=== PATIENT | female | born 1995 | race African-American/Black ===

== ENCOUNTER 2020-04-19 08:20 | Inpatient (IN) | payer OTHER ==
[2020-04-19] MEDS ORDERED: Bupivacaine 0.25% HCL 30 ML VIAL ONE (08:33)
[2020-04-19 08:46] VITALS: BMI 36.9
[2020-04-19] MEDS ORDERED: hydrALAZINE 20 MG/ML VIAL SLOW IVP PRN ×4 (09:06→23:49)
--- NOTE | 2020-04-19 09:26 | PDOC.LDHP ---
Labor and Delivery H&P Chief complaint: contractions, loss of fluid HPI: Patient of Dr Zhao CC: Possible ROM at 2300 24 yo G1 at 38 weeks scheduled for IOL Friday with COVID pretest scheduled this am but here for LOF and some CTX. States Good FM, no VB, no fevers at home. Review of systems: negative Dating criteria: last menstrual period Grav: 1 Current complications: gestational diabetes (on Gylburide 2,.5 mg po QAM) Current medications: pre- vitamins, other (Glyburide) Allergies/Adverse Reactions: Allergies Allergy/AdvReac Type Severity Reaction Status Date / Time No Known Allergies Allergy Unverified 04/19/20 08:39 Social history: other (tested pos for THC this ) - Physical Exam Vital signs reviewed and normal: yes (135/81 80 16) General: NAD Lungs: CTAB Abdomen: gravid Extremeties: no edema FHT: category 1 [place] contractions every: irregular - Vaginal Exam cm dilated: 4 (by me) Effacement: 50% Station: -1 - Assessment L&D Assessment: term patient in labor (Early Preg; GBS negative. SSE performed by me and evidence of gross pooling in cervix clear fluid. Visualed by me and RN and clemente Zambrano ([email or web address]).) - Plan Plan: admit to L&D, labor augmentation if indicated, informed consent obtained, anesthesia consult for pain management, other (Dr zhao aware. Check Accucheck as needed)
[2020-04-19] MEDS ORDERED: Lidocaine 1% (PF) 30 ML VIAL SC PRN ×2 (09:38→09:39)
[2020-04-19] MEDS ORDERED: Promethazine HCl 25 MG/ML VIAL IM PRN ×4 (09:38→23:49)
[2020-04-19] MEDS ORDERED: Ondansetron PF 4 MG/2 ML Vial IVP PRN ×4 (09:38→23:49)
[2020-04-19] MEDS ORDERED: NS / Oxytocin 40 units/1000ml 1,000 ML IV PRN ×2 (09:38→09:39)
[2020-04-19] MEDS ORDERED: Butorphanol Tartrate 1 MG/ML VIAL SLOW IVP PRN (09:39)
[2020-04-19] MEDS ORDERED: HYDROcodone/Acetaminophen 5/325 mg Tablet PO PRN ×2 (09:39)
[2020-04-19] MEDS ORDERED: Ibuprofen 800 MG TAB PO PRN (09:39)
[2020-04-19] MEDS ORDERED: NS w/ Oxytocin 10 units 500 ML IV SCH (09:45)
[2020-04-19] MEDS: Lactated Ringer's 1,000 ML IV SCH ×2 (09:50→12:23)
[2020-04-19 10:04] LABS: Amnisure Test No Membranes Rupture (No Rupture)
[2020-04-19 10:05] LABS: Amnisure Internal Control QC ACCEPTABLE (ACCEPTABLE)
[2020-04-19 10:20] LABS: Hemoglobin 13.2 g/dL (12.0-16.0); Mean Corpuscular HGB CONC 32.7 g/dL (32.0-36.0); Mean Corpuscular Hemoglobin 27.6 pg (27.0-31.0); Mean Corpuscular Volume 84.4 fL (78.0-98.0); Mean Platelet Volume 8.7 fL (7.4-10.4); Platelet Count 274 thou/uL (130-400); RBC Distribution Width 14.6 % (11.5-14.5); Red Blood Cell (RBC) Count 4.79 mill/uL (4.20-5.40); White Blood Cell (WBC) Count 8.2 thou/uL (4.8-10.8)
[2020-04-19 11:00] LABS: Syphilis Antibody Nonreactive (Nonreactive); Syphilis Antibody Index 0.04 S/CO (<1.00 Non-Reactive)
[2020-04-19 11:11] LABS: HBSAg Index 0.18 S/CO (0-0.99); HIV (1/2) Antibody/Antigen Non-Reactive (NonReactive); HIV 1/2 INDEX 0.36 S/CO (<1.00); Hep B Surf Ag Non-Reactive S/CO (NonReactive)
[2020-04-19] MEDS ORDERED: Fentanyl 4 mcg/Bup 0.1% Cadd 100 ML ONE (11:33)
[2020-04-19] MEDS ORDERED: Acetaminophen 325 MG TAB PO PRN (12:50)
[2020-04-19] MEDS ORDERED: Naloxone HCl 0.4 mg/ml Vial IVP PRN ×2 (12:50)
[2020-04-19] MEDS ORDERED: diphenhydrAMINE 50 MG/ML VIAL IVP PRN (12:50)
[2020-04-19] MEDS ORDERED: Lactated Ringer's 500 ML IV PRN (12:50)
[2020-04-19] MEDS ORDERED: EPHEDRINE 25 MG/5 ML SYRINGE SLOW IVP PRN (12:50)
[2020-04-19] MEDS ORDERED: Fentanyl 4 mcg/Bupivacaine 0.1% Cassette 100 ML EPIDURAL SCH (13:00)
[2020-04-19] MEDS ORDERED: Communication Order-Pharmacy FS SCH (13:00)
[2020-04-19] MEDS ORDERED: Lidocaine 1% (PF) 30 ML VIAL ONE (17:39)
[2020-04-19] MEDS ORDERED: NS / Oxytocin 40 units/1000ml 1,000 ML ONE (17:39)
[2020-04-19] MEDS ORDERED: CEFAZOLIN 2 GM in Premix Bag 1 BAG IVPB SCH (19:15)
--- NOTE | 2020-04-19 19:52 | DN ---
DATE OF PROCEDURE: 04/19/2020 TIME OF SERVICE: 1899. PREOPERATIVE DIAGNOSIS: Thirty-seven weeks gestation, class A2 diabetes, spontaneous rupture of membranes. POSTOPERATIVE DIAGNOSIS: Thirty-seven weeks gestation, class A2 diabetes, spontaneous rupture of membranes. PROCEDURE PERFORMED: Spontaneous vaginal delivery with fourth-degree laceration. ANESTHESIA: Epidural. MEDICATIONS: 2 g Ancef post delivery secondary to fourth degree. DRAINS: Ibrahim to gravity. OPERATIVE FINDINGS: 1. Vigorous female , 100 mL QBL after delivery, Apgars and weight pending, to nursery. 2. Fourth degree midline laceration without episiotomy repaired in the usual manner. 3. Correct counts at the end of the procedure. DISPOSITION: Recovery room in good condition. DESCRIPTION OF PROCEDURE: After obtaining appropriate informed consent, the patient has progressed to complete-complete, she pushed for approximately 1 hour. Baby got down to the level of the perineum and delivered occiput anterior with the shoulders rather transverse. With delivery of the shoulders, 4th degree laceration was appreciated. The was delivered onto the abdomen. Suction cord clamped and cut, and handed off to nurse in attendance. Usual cord blood sample was obtained. The placenta was delivered spontaneously quickly. Fourth-degree laceration was noted to be approximately 2 cm long and was quite smooth along the edges. A 2-0 chromic was used to reapproximate the mucosa of the rectum starting at the apex down the level of the anus and onto the perineum and then tagged for future use. The anal sphincter was then plicated together using horizontal mattresses of 2-0 chromic interrupted x4, incorporating capsule and the body of the muscle. Good reapproximation was noted at the apex. At the vaginal aspect, the laceration was identified, and ligated with a 2-0 chromic suture and running locking at the level of the introitus. We then reapproximated the perineal body together. The stitch from the anal mucosa that was on the perineum was then continued up to the level of the introitus. Further inspection of the vagina revealed no other lacerations. The patient was entered into routine postoperative care. She received 2 g Ancef for antibiotic prophylaxis and we placed on Maureen-Colace b.i.d. Job ID: [id number]
[2020-04-19] MEDS ORDERED: Docusate Calcium (SURFAK) 240 MG CAP PO SCH (23:45)
[2020-04-19] MEDS ORDERED: Lanolin Ointment 7 GM TUBE TOP PRN (23:49)
[2020-04-19] MEDS ORDERED: Preparation H Ointment 28 GM TUBE PR PRN (23:49)
[2020-04-19] MEDS ORDERED: Benzocaine-Menthol 82.5 ML CAN TOP PRN (23:49)
[2020-04-19] MEDS ORDERED: Milk Of Magnesia 30 ML UDCUP PO PRN (23:49)
[2020-04-19] MEDS ORDERED: Zolpidem Tartrate 5 MG TAB PO PRN (23:49)
[2020-04-19] MEDS ORDERED: diphenhydrAMINE 25 MG CAP PO PRN (23:49)
[2020-04-19] MEDS ORDERED: NS / Oxytocin 40 units/1000ml 1,000 ML IV SCH (23:49)
[2020-04-20] MEDS: Ibuprofen 800 MG TAB PO SCH ×4 (00:03→23:56)
[2020-04-20] MEDS: HYDROcodone/Acetaminophen 5/325 mg Tablet PO PRN ×4 (00:03→16:28)
[2020-04-20 07:02] LABS: Glucose 82 mg/dL (70-105)
[2020-04-20] MEDS: Ferrous Sulfate 325 MG TAB PO SCH ×2 (07:27→16:59)
[2020-04-20] MEDS: Docusate Calcium (SURFAK) 240 MG CAP PO SCH ×2 (08:34→22:42)
[2020-04-20] MEDS: Prenatal Vitamin 1 TAB PO SCH (08:34)
[2020-04-20] MEDS ORDERED: Adacel (T-DAP) 0.5 ML SYRINGE IM ONE (09:00)
--- NOTE | 2020-04-20 09:45 | PRG ---
DATE OF SERVICE: 04/20/2020 TIME OF SERVICE: 07:25. SUBJECTIVE: The patient is resting comfortably. She complains of mild perineal pain. She denies headache, fever, nausea or vomiting. OBJECTIVE: VITAL SIGNS: Temperature 99.3, pulse 96, respirations 20, and blood pressure 130/72. HEENT: Within normal limits. LUNGS: Clear to auscultation bilaterally. HEART: Regular rate and rhythm. ABDOMEN: Soft and nontender. : Fundus is firm. U -5. Normal lochia. EXTREMITIES: No clubbing, cyanosis or edema. Perineum intact. IMPRESSION: The patient is doing well, class A2 diabetes, status post normal spontaneous vaginal delivery with 4th-degree laceration. PLAN: Routine care. Discharged home on 04/21 with Colace b.i.d. for a month and [place] prescription sent from office EHR already. We will have Ob hospitalist round on the patient tomorrow. Job ID: [id number]
--- NOTE | 2020-04-21 06:17 | PDOC.PP ---
Post Progress Note Post Day #: PPD2 Subjective: Resting comfortably, no c/o. PO intake tolerated: yes Flatus: yes Ambulation: yes Vital Signs (12 hours) Temp Pulse Resp BP Pulse Ox 04/21/20 00:00 98.6 F 92 14 122/66 04/20/20 19:44 98.8 F 107 H 16 128/66 98 Weight Weight 107.048 kg - Physical Examination General: NAD Respiratory: non-labored breathing Neurological: no gross focal deficits Psychiatric: normal affect Result Diagrams: 04/19/20 10:08 04/20/20 06:36 Additional Labs: Post Labs Blood Type A POSITIVE 04/19/20 10:34 Hep Bs Antigen Non-Reactive S/CO (NonReactive) 04/19/20 10:08 - Assessment/Plan Doing well s/p SVE with 4* DC home today Cont. pericare, Sitz BID at home with stool softners. F/u with Dr. Thibodeaux in 2-4 weeks. Precautions reviewed.
[2020-04-21] MEDS: Ferrous Sulfate 325 MG TAB PO SCH (08:24)
[2020-04-21] MEDS: Docusate Calcium (SURFAK) 240 MG CAP PO SCH (08:27)
[2020-04-21] MEDS: Ibuprofen 800 MG TAB PO SCH (08:27)
[2020-04-21] MEDS: Prenatal Vitamin 1 TAB PO SCH (08:27)
[2020-04-21] MEDS: HYDROcodone/Acetaminophen 5/325 mg Tablet PO PRN (08:28)
[2020-04-21 08:59] VITALS: BP 131/60; TEMP 98.5
== END 2020-04-21 13:30 | disposition home or self-care (01) | DRG 768 ==
LOC: L&D/OP 08:20 → L&D 09:38 → 3SW 22:30
PROVIDERS: ADMIT Obstetrics & Gynecology; ATTEND Obstetrics & Gynecology
PROC: 10E0XZZ Delivery of Products of Conception, External Approach (ICD-10-PCS; principal; 2020-04-19)
PROC: 0DQP0ZZ Repair Rectum, Open Approach (ICD-10-PCS; 2020-04-19)
DX: O24.425 Gestational diabetes mellitus in childbirth, controlled by oral hypoglycemic drugs (principal); Z37.0 Single live birth; O70.3 Fourth degree perineal laceration during delivery; Z3A.38 38 weeks gestation of pregnancy
CPT/HCPCS: 36415; 36416; 82947; 84112; 85027; 86780; 86850; 86900; 86901; 87340; 87389; J0690; J2001; J2590; S0020